=== PATIENT | female | born 1940 | race Caucasian/White ===

== ENCOUNTER 2019-12-14 00:06 | Inpatient (IN) ==
[2019-12-14 01:18] LABS: Bacteria,Urine Moderate per hpf (None-Few); Bilirubin,Urine Negative (Negative); Blood,Urine Trace (Negative); Clarity,Urine Turbid (Clear); Color,Urine Yellow (Yellow); Glucose,Urine (UA) Normal (Normal); Ketones,Urine Negative (Negative); Leukocyte Esterase,Urine Moderate (Negative); Mucus,Urine Few per lpf (None-Few); Nitrite,Urine Negative (Negative); Protein,Urine >=300 mg/dL (Neg-Trace); Specific Gravity,Urine 1.022 (1.010-1.025); Squamous Epithelial Cell,Urine Few per hpf (None-Few); WBC,Urine 50-100 per hpf (0-3)
[2019-12-14] MEDS ORDERED: 0.9 % Sodium Chloride 1,000 ML IVC ONE (02:00)
[2019-12-14 03:26] LABS: Albumin 3.1 g/dL (3.5-5.7); Albumin/Globulin Ratio 1.2 (1.1-2.2); Bilirubin,Total 0.8 mg/dL (0.3-1.0); Calcium 8.1 mg/dL (8.6-10.3); Globulin 2.6 g/dL (2.4-3.5); Potassium 4.2 mEq/L (3.5-5.1); Total Protein 5.7 g/dL (6.4-8.9)
[2019-12-14 03:36] LABS: Basophils % 0.2 %; Hemoglobin 10.4 g/dL (11.5-15.4); Immature Granulocytes % 0.7 % (0-4); Lymphocytes # 0.4 K/mcL (0.6-4.6); Lymphocytes % 7.5 %; Mean Corpuscular HGB Conc 31.5 g/dL (31.6-35.5); Mean Corpuscular Hemoglobin 27.9 pg (28.0-33.3); Mean Corpuscular Volume 88.5 fL (83.0-100.0); Mean Platelet Volume 13.9 fL (9.4-12.4); Monocytes # 0.3 K/mcL (0.0-1.3); Monocytes % 4.5 %; Neutrophils # 4.8 K/mcL (1.6-8.9); Platelet Count 59 K/mcL (140-400); Red Blood Count 3.73 M/mcL (3.82-4.97); Red Cell Distribution Width 12.5 % (11.5-14.5); Segmented Neutrophils % 87.1 %; White Blood Count 5.5 K/mcL (4.3-11.1)
[2019-12-14 03:37] LABS: Large Platelets Present (Not Present); Platelet Estimate Decreased (Normal)
[2019-12-14] MEDS ORDERED: cefTRIAXone 1,000 MG in Water for inj. (sterile) 10 ML IVP ONE (04:22)
[2019-12-14] MEDS ORDERED: *HR* Dextrose 50 % in Water (Vial) 50 ML VIAL IVP PRN (05:14)
[2019-12-14] MEDS ORDERED: D5% in Water 1,000 ML IVC PRN (05:14)
[2019-12-14] MEDS ORDERED: Dextrose Gel 15 GM/37.5 ML TUBE PO PRN ×2 (05:14)
[2019-12-14] MEDS ORDERED: Ondansetron 4 MG/2 ML VIAL IVP PRN (05:27)
[2019-12-14] MEDS ORDERED: Naloxone 0.4 MG/ML INJ IVP PRN (05:27)
[2019-12-14 06:01] LABS: Uric Acid 4.9 mg/dL (2.3-7.6)
[2019-12-14 06:08] LABS: INR 1.1; Prothrombin Time 12.6 Seconds (9.4-12.1)
[2019-12-14 06:10] LABS: Activated Partial Thrombo Time 28.1 Seconds (26.0-36.0)
[2019-12-14] MEDS: Insulin DETEMIR 100 UNIT/ML X5UNITS SQ SCH ×2 (06:27→20:45)
[2019-12-14] MEDS: 0.9 % Sodium Chloride 1,000 ML IVC SCH ×2 (06:35→20:44)
[2019-12-14 06:50] LABS: Calcium 8.2 mg/dL (8.6-10.3)
[2019-12-14] MEDS: Insulin LISPRO 300 UNITS/3 ML VIAL SQ SCH ×3 (08:23→17:51)
[2019-12-14 08:55] LABS: Calcium 8.2 mg/dL (8.6-10.3)
[2019-12-14] MEDS ORDERED: PARoxetine 10 MG TABLET PO SCH (09:15)
[2019-12-14] MEDS ORDERED: amLODIPine 5 MG TABLET PO SCH (09:15)
[2019-12-14 10:49] LABS: Potassium 3.8 mEq/L (3.5-5.1)
[2019-12-14] MEDS: Aspirin Enteric Coated 81 MG Tablet PO SCH (10:55)
[2019-12-14] MEDS: carvediloL 25 MG TABLET PO SCH ×2 (10:58→17:51)
[2019-12-14 16:54] LABS: Calcium 7.9 mg/dL (8.6-10.3); Potassium 3.9 mEq/L (3.5-5.1)
[2019-12-14] MEDS: Acetaminophen 325 MG TABLET PO PRN (19:11)
[2019-12-14] MEDS: PARoxetine 10 MG TABLET PO SCH (20:45)
[2019-12-14] MEDS: amLODIPine 5 MG TABLET PO SCH (20:45)
[2019-12-15 00:53] LABS: Calcium 7.8 mg/dL (8.6-10.3); Potassium 3.9 mEq/L (3.5-5.1)
[2019-12-15] MEDS: hydrALAZINE 10 MG TABLET PO PRN ×2 (04:04→10:58)
[2019-12-15] MEDS: Acetaminophen 325 MG TABLET PO PRN ×3 (04:04→16:43)
[2019-12-15] MEDS ORDERED: cefTRIAXone 1,000 MG in 0.9 % Sodium Chloride Mini Bag 100 ML IVPB SCH (05:00)
[2019-12-15 07:34] LABS: Hemoglobin 9.5 g/dL (11.5-15.4)
[2019-12-15 07:36] LABS: Hematocrit 29.4 % (35.3-44.9); Immature Platelets 22.3 % (1.1-6.1); Lymphocytes # 0.2 K/mcL (0.6-4.6); Mean Corpuscular HGB Conc 32.3 g/dL (31.6-35.5); Mean Corpuscular Hemoglobin 28.3 pg (28.0-33.3); Mean Corpuscular Volume 87.5 fL (83.0-100.0); Monocytes # 0.2 K/mcL (0.0-1.3); Red Blood Count 3.36 M/mcL (3.82-4.97); Red Cell Distribution Width 12.6 % (11.5-14.5)
[2019-12-15 07:40] LABS: Platelet Count 31 K/mcL (140-400)
[2019-12-15 07:48] LABS: % Iron Saturation 6 % (15-50); Alanine Aminotransferase 74 Units/L (7-52); Albumin 2.7 g/dL (3.5-5.7); Albumin/Globulin Ratio 1.3 (1.1-2.2); Alkaline Phosphatase 85 Units/L (34-104); Aspartate Amino Transferase 74 Units/L (13-39); BUN/Creatinine Ratio 22 (6-26); Bilirubin,Total 0.6 mg/dL (0.3-1.0); Blood Urea Nitrogen 29 mg/dL (8-23); Calcium 7.9 mg/dL (8.6-10.3); Carbon Dioxide 22 mEq/L (23-29); Chloride 100 mEq/L (98-107); Globulin 2.1 g/dL (2.4-3.5); Glucose 182 mg/dL (70-105); Iron 13 mcg/dL (50-170); Osmolality,Calculated 280 (280-300); Potassium 3.7 mEq/L (3.5-5.1); Sodium 130 mEq/L (136-145); Total Protein 4.8 g/dL (6.4-8.9); Transferrin 158 mg/dL (203-362); eGFR For African Americans 46 (> 60); eGFR For Non-African Americans 38 (> 60)
[2019-12-15 07:55] LABS: Thyroid Stimulating Hormone 0.252 mcIU/mL (0.340-5.600)
[2019-12-15 08:01] LABS: Ferritin > 1500 ng/mL (10-120)
[2019-12-15 08:04] LABS: Folate 17.8 ng/mL (3.0-16.0)
[2019-12-15 08:05] LABS: Vitamin B12 1153 pg/mL (250-1100)
[2019-12-15] MEDS: carvediloL 25 MG TABLET PO SCH ×2 (08:28→16:43)
[2019-12-15] MEDS: Aspirin Enteric Coated 81 MG Tablet PO SCH (08:28)
[2019-12-15] MEDS: Insulin LISPRO 300 UNITS/3 ML VIAL SQ SCH ×3 (08:32→16:44)
[2019-12-15 08:47] LABS: Neutrophils # 2.6 K/mcL (1.6-8.9); Platelet Estimate Marked Decrease (Normal)
[2019-12-15 08:48] LABS: Hepatitis B Surface Antigen Nonreactive (Nonreactive)
[2019-12-15 09:08] LABS: Protein/Creatinine Ratio,Urine 2.48 mg/mg (0.00-0.20)
[2019-12-15 09:16] LABS: Hepatitis B Core IgM Nonreactive (Nonreactive)
[2019-12-15 09:17] LABS: Hepatitis A Antibody IgM Nonreactive (Nonreactive); Hepatitis C Virus Antibody Nonreactive (Nonreactive)
[2019-12-15] MEDS ORDERED: NON-FORMULARY MEDICATION 1 EACH EACH (Losartan Potassium [Cozaar] 100 MG) PO SCH (10:00)
[2019-12-15 11:01] LABS: Mean Corpuscular HGB Conc 32.9 g/dL (31.6-35.5)
[2019-12-15 11:02] LABS: Hematocrit 29.2 % (35.3-44.9); Hemoglobin 9.6 g/dL (11.5-15.4); Immature Platelets 23.3 % (1.1-6.1); Mean Corpuscular Hemoglobin 28.5 pg (28.0-33.3); Mean Corpuscular Volume 86.6 fL (83.0-100.0); Monocytes # 0.3 K/mcL (0.0-1.3); Red Blood Count 3.37 M/mcL (3.82-4.97); Red Cell Distribution Width 12.8 % (11.5-14.5); White Blood Count 3.4 K/mcL (4.3-11.1)
[2019-12-15 11:04] LABS: Triiodothyronine (T3) Free 2.17 pg/mL (2.50-3.90)
[2019-12-15 11:16] LABS: Platelet Count 28 K/mcL (140-400)
[2019-12-15] MEDS: 0.9 % Sodium Chloride 1,000 ML IVC SCH ×2 (11:27→22:37)
[2019-12-15] MEDS: Ipratropium/Albuterol Neb 3 ML IH PRN (11:46)
[2019-12-15] MEDS ORDERED: amLODIPine 5 MG TABLET PO ONE (11:48)
[2019-12-15 12:32] LABS: Eosinophils # 0.1 K/mcL (0.0-0.6); Lymphocytes # 0.3 K/mcL (0.6-4.6); Neutrophils # 2.7 K/mcL (1.6-8.9); Platelet Estimate Marked Decrease (Normal)
[2019-12-15] MEDS: Piperacillin/Tazobactam 3.375 GM in 0.9 % Sodium Chloride Mini Bag 100 ML IVPB SCH ×2 (13:58→22:36)
[2019-12-15] MEDS ORDERED: 0.9 % Sodium Chloride 500 ML IVC ONE (16:04)
[2019-12-15 16:24] LABS: Bilirubin,Urine Negative (Negative); Blood,Urine Negative (Negative); Clarity,Urine Clear (Clear); Color,Urine Yellow (Yellow); Glucose,Urine (UA) Normal (Normal); Ketones,Urine Negative (Negative); Leukocyte Esterase,Urine Negative (Negative); Nitrite,Urine Negative (Negative); Protein,Urine 200 mg/dL (Neg-Trace); RBC,Urine 0-3 per hpf (0-3); Specific Gravity,Urine 1.021 (1.010-1.025); Squamous Epithelial Cell,Urine Few per hpf (None-Few); WBC,Urine 0-3 per hpf (0-3)
[2019-12-15 19:16] LABS: Adenovirus Not Detected (Not Detect); Bordetella Pertussis Not Detected (Not Detect); Chlamydophila pneumoniae Not Detected (Not Detect); Coronavirus 229E Not Detected (Not Detect); Coronavirus HKU1 Not Detected (Not Detect); Coronavirus NL63 Not Detected (Not Detect); Coronavirus OC43 Not Detected (Not Detect); Human Metapneumovirus Not Detected (Not Detect); Human Rhinovirus/Enterovirus Not Detected (Not Detect); Influenza A Subtype 2009 H1 Not Detected (Not Detect); Influenza B Not Detected (Not Detect); Mycoplasma pneumoniae Not Detected (Not Detect); Parainfluenza Virus 1 Not Detected (Not Detect); Parainfluenza Virus 2 Not Detected (Not Detect); Parainfluenza Virus 3 Not Detected (Not Detect); Parainfluenza Virus 4 Not Detected (Not Detect); Respiratory Syncytial Virus Not Detected (Not Detect)
[2019-12-15 19:23] LABS: SARS-CoV-2 Not Detected (Not Detect)
[2019-12-15] MEDS: PARoxetine 10 MG TABLET PO SCH (22:36)
[2019-12-15] MEDS: amLODIPine 5 MG TABLET PO SCH (22:36)
[2019-12-15] MEDS: Insulin DETEMIR 100 UNIT/ML X5UNITS SQ SCH (22:36)
[2019-12-16] MEDS: hydrALAZINE 10 MG TABLET PO PRN ×2 (04:02→14:56)
[2019-12-16] MEDS: Acetaminophen 325 MG TABLET PO PRN ×2 (04:02→14:56)
[2019-12-16] MEDS: Piperacillin/Tazobactam 3.375 GM in 0.9 % Sodium Chloride Mini Bag 100 ML IVPB SCH ×3 (06:45→21:45)
[2019-12-16 07:39] LABS: Hemoglobin 8.6 g/dL (11.5-15.4)
[2019-12-16 07:41] LABS: Hematocrit 26.4 % (35.3-44.9); Lymphocytes # 0.5 K/mcL (0.6-4.6); Mean Corpuscular HGB Conc 32.6 g/dL (31.6-35.5); Mean Corpuscular Hemoglobin 28.8 pg (28.0-33.3); Mean Corpuscular Volume 88.3 fL (83.0-100.0); Red Blood Count 2.99 M/mcL (3.82-4.97); White Blood Count 3.8 K/mcL (4.3-11.1)
[2019-12-16 07:48] LABS: Calcium 7.2 mg/dL (8.6-10.3); Potassium 3.5 mEq/L (3.5-5.1)
[2019-12-16 08:03] LABS: Platelet Count 18 K/mcL (140-400)
[2019-12-16] MEDS: 0.9 % Sodium Chloride 1,000 ML IVC SCH (08:05)
[2019-12-16] MEDS: carvediloL 25 MG TABLET PO SCH ×2 (08:05→17:01)
[2019-12-16] MEDS: Aspirin Enteric Coated 81 MG Tablet PO SCH (08:05)
[2019-12-16] MEDS: Insulin LISPRO 300 UNITS/3 ML VIAL SQ SCH ×5 (08:09→21:45)
[2019-12-16] MEDS ORDERED: Vancomycin 1,500 MG/265 ML IV.SOLN IVPB ONE (08:20)
[2019-12-16 08:46] LABS: Magnesium 1.6 mg/dL (1.6-2.6)
[2019-12-16 08:52] LABS: Monocytes # 0.2 K/mcL (0.0-1.3); Neutrophils # 3.1 K/mcL (1.6-8.9); Platelet Estimate Marked Decrease (Normal)
[2019-12-16 09:43] LABS: Phosphorous 2.8 mg/dL (2.7-4.5)
[2019-12-16] MEDS: Ipratropium/Albuterol Neb 3 ML IH PRN (10:52)
[2019-12-16] MEDS ORDERED: 0.9 % Sodium Chloride 250 ML IVC SCH (11:45)
[2019-12-16] MEDS: Pantoprazole 40 MG VIAL IVP SCH ×2 (12:06→15:44)
[2019-12-16 12:22] LABS: Hematocrit 28.4 % (35.3-44.9); Hemoglobin 9.1 g/dL (11.5-15.4)
[2019-12-16] MEDS ORDERED: Furosemide 20 MG/2 ML VIAL IVP ONE (15:00)
[2019-12-16] MEDS ORDERED: MethylPREDNISolone 40 MG/ML VIAL IVP ONE (15:01)
[2019-12-16] MEDS ORDERED: 0.9 % Sodium Chloride 250 ML ONE (17:35)
[2019-12-16 19:55] LABS: Hematocrit 26.3 % (35.3-44.9); Hemoglobin 8.3 g/dL (11.5-15.4)
[2019-12-16] MEDS: amLODIPine 5 MG TABLET PO SCH (21:44)
[2019-12-16] MEDS: PARoxetine 10 MG TABLET PO SCH (21:44)
[2019-12-17 00:22] LABS: Hematocrit 26.1 % (35.3-44.9); Hemoglobin 8.2 g/dL (11.5-15.4)
[2019-12-17] MEDS: Insulin LISPRO 300 UNITS/3 ML VIAL SQ SCH ×5 (05:34→20:47)
[2019-12-17] MEDS ORDERED: cefOXitin 1,000 MG, 0.9 % Sodium Chloride 1,000 ML IR ONE (06:00)
[2019-12-17] MEDS: Pantoprazole 40 MG VIAL IVP SCH ×2 (06:52→17:07)
[2019-12-17] MEDS: Piperacillin/Tazobactam 3.375 GM in 0.9 % Sodium Chloride Mini Bag 100 ML IVPB SCH ×3 (06:53→22:12)
[2019-12-17 07:45] LABS: Hematocrit 26.9 % (35.3-44.9); Hemoglobin 8.5 g/dL (11.5-15.4); Immature Platelets 31.8 % (1.1-6.1); Mean Corpuscular HGB Conc 31.6 g/dL (31.6-35.5); Mean Corpuscular Hemoglobin 27.8 pg (28.0-33.3); Mean Corpuscular Volume 87.9 fL (83.0-100.0); Mean Platelet Volume 14.2 fL (9.4-12.4); Monocytes # 0.3 K/mcL (0.0-1.3); Red Blood Count 3.06 M/mcL (3.82-4.97); Red Cell Distribution Width 13.4 % (11.5-14.5); White Blood Count 4.8 K/mcL (4.3-11.1)
[2019-12-17 07:48] LABS: Fibrinogen 166 mg/dL (169-393)
[2019-12-17 07:52] LABS: Platelet Count 21 K/mcL (140-400)
[2019-12-17 07:56] LABS: D-Dimer 34696 ng/mLFEU (0-500)
[2019-12-17 08:04] LABS: Albumin 2.4 g/dL (3.5-5.7); Albumin/Globulin Ratio 1.1 (1.1-2.2); Bilirubin,Direct 1.5 mg/dL (0.0-0.2); Bilirubin,Indirect 0.7 mg/dL (0.0-1.0); Bilirubin,Total 2.2 mg/dL (0.3-1.0); Calcium 7.7 mg/dL (8.6-10.3); Globulin 2.1 g/dL (2.4-3.5); Magnesium 1.9 mg/dL (1.6-2.6); Phosphorous 3.8 mg/dL (2.7-4.5); Potassium 3.3 mEq/L (3.5-5.1); Total Protein 4.5 g/dL (6.4-8.9)
[2019-12-17 08:20] LABS: Vancomycin,Trough 8 mcg/mL (5-10)
[2019-12-17 08:24] LABS: Lymphocytes # 0.2 K/mcL (0.6-4.6); Neutrophils # 4.3 K/mcL (1.6-8.9); Platelet Estimate Marked Decrease (Normal)
[2019-12-17] MEDS ORDERED: 0.9 % Sodium Chloride 250 ML IVC SCH ×2 (08:30→09:45)
[2019-12-17 08:34] LABS: Acetaminophen < 10 mcg/mL (10-20); Lactate Dehydrogenase 791 Units/L (140-271)
[2019-12-17] MEDS: carvediloL 25 MG TABLET PO SCH ×2 (08:55→16:03)
[2019-12-17] MEDS ORDERED: Vancomycin 1,250 MG/262.5 ML IV.SOLN IVPB SCH (09:00)
[2019-12-17 09:20] LABS: INR 1.1
[2019-12-17 09:21] LABS: Immature Reticulocyte % 14.6 % (11.0-38.0); Retculocyte # 0.03 M/mcL (0.05-0.10)
[2019-12-17] MEDS: hydrALAZINE 10 MG TABLET PO PRN ×2 (12:05→20:39)
[2019-12-17] MEDS: ALPRAZolam 0.5 MG TABLET PO PRN ×2 (12:05→20:40)
[2019-12-17] MEDS ORDERED: Aminoglycoside Consult 1 EACH MC ONE (14:10)
[2019-12-17 17:56] LABS: ANA IgG by ELISA NONE DETECTED (None Detected)
[2019-12-17] MEDS: amLODIPine 5 MG TABLET PO SCH (20:40)
[2019-12-17] MEDS: PARoxetine 10 MG TABLET PO SCH (20:40)
[2019-12-17] MEDS: Insulin DETEMIR 100 UNIT/ML X5UNITS SQ SCH (22:13)
[2019-12-17] MEDS: Ipratropium/Albuterol Neb 3 ML IH PRN (23:37)
[2019-12-18] MEDS: Pantoprazole 40 MG VIAL IVP SCH ×2 (06:16→16:45)
[2019-12-18] MEDS: Piperacillin/Tazobactam 3.375 GM in 0.9 % Sodium Chloride Mini Bag 100 ML IVPB SCH ×3 (06:58→21:37)
[2019-12-18] MEDS: carvediloL 25 MG TABLET PO SCH ×2 (07:43→16:43)
[2019-12-18] MEDS: Insulin LISPRO 300 UNITS/3 ML VIAL SQ SCH ×4 (07:44→19:55)
[2019-12-18 08:33] LABS: Hemoglobin 7.9 g/dL (11.5-15.4)
[2019-12-18 08:35] LABS: Hematocrit 24.1 % (35.3-44.9); Immature Platelets 23.7 % (1.1-6.1); Mean Corpuscular HGB Conc 32.8 g/dL (31.6-35.5); Mean Corpuscular Hemoglobin 28.6 pg (28.0-33.3); Mean Corpuscular Volume 87.3 fL (83.0-100.0); Red Blood Count 2.76 M/mcL (3.82-4.97); Red Cell Distribution Width 13.5 % (11.5-14.5)
[2019-12-18 08:48] LABS: Platelet Count 41 K/mcL (140-400)
[2019-12-18 08:55] LABS: Albumin 2.3 g/dL (3.5-5.7); Albumin/Globulin Ratio 1.1 (1.1-2.2); Bilirubin,Indirect 0.6 mg/dL (0.0-1.0); Bilirubin,Total 1.6 mg/dL (0.3-1.0); Calcium 7.7 mg/dL (8.6-10.3); Globulin 2.1 g/dL (2.4-3.5); Magnesium 2.1 mg/dL (1.6-2.6); Phosphorous 2.5 mg/dL (2.7-4.5); Potassium 3.2 mEq/L (3.5-5.1); Total Protein 4.4 g/dL (6.4-8.9)
[2019-12-18 09:02] LABS: Fibrinogen 167 mg/dL (169-393)
[2019-12-18] MEDS ORDERED: Potassium Phosphate 44 MEQ in 0.9 % Sodium Chloride 250 ML IVPB ONE (09:14)
[2019-12-18 09:15] LABS: D-Dimer 16378 ng/mLFEU (0-500)
[2019-12-18 10:26] LABS: Lymphocytes # 0.8 K/mcL (0.6-4.6); Monocytes # 0.3 K/mcL (0.0-1.3); Neutrophils # 7.9 K/mcL (1.6-8.9)
[2019-12-18 10:27] LABS: Platelet Estimate Marked Decrease (Normal)
[2019-12-18 10:28] LABS: Large Platelets Present (Not Present); Reactive Lymphocytes Present (Not Present)
[2019-12-18 11:19] LABS: ABG Base Excess 0 mEq/L (-2 to 3); ABG HCO3 25 mEq/L (21-27); ABG Oxygen Saturation 93 % (95-98); ABG PCO2 44 mmHg (35-45); ABG PH 7.36 pH Units (7.32-7.45); ABG PO2 69 mmHg (85-104); ABG TCO2 26 mEq/L (20-26)
[2019-12-18 16:27] LABS: Hemoglobin 7.6 g/dL (11.5-15.4)
[2019-12-18 16:29] LABS: Hematocrit 23.9 % (35.3-44.9)
[2019-12-18] MEDS: PARoxetine 10 MG TABLET PO SCH (19:55)
[2019-12-18] MEDS: amLODIPine 5 MG TABLET PO SCH (19:55)
[2019-12-18] MEDS: Insulin DETEMIR 100 UNIT/ML X5UNITS SQ SCH (19:57)
[2019-12-19] MEDS: Ipratropium/Albuterol Neb 3 ML IH PRN (01:21)
[2019-12-19] MEDS: Pantoprazole 40 MG VIAL IVP SCH ×2 (05:45→17:23)
[2019-12-19] MEDS: Piperacillin/Tazobactam 3.375 GM in 0.9 % Sodium Chloride Mini Bag 100 ML IVPB SCH ×3 (05:45→21:09)
[2019-12-19 08:26] LABS: Calcium 7.5 mg/dL (8.6-10.3); Magnesium 2.1 mg/dL (1.6-2.6); Phosphorous 2.5 mg/dL (2.7-4.5); Potassium 3.5 mEq/L (3.5-5.1)
[2019-12-19 08:28] LABS: Hematocrit 24.8 % (35.3-44.9)
[2019-12-19] MEDS: Insulin LISPRO 300 UNITS/3 ML VIAL SQ SCH ×4 (08:28→21:13)
[2019-12-19 08:30] LABS: Hemoglobin 7.7 g/dL (11.5-15.4); Immature Platelets 30.6 % (1.1-6.1); Mean Corpuscular Hemoglobin 27.3 pg (28.0-33.3); Mean Corpuscular Volume 87.9 fL (83.0-100.0); Nucleated Red Blood Cells 0.1 /100 WBC (0); Red Blood Count 2.82 M/mcL (3.82-4.97); Red Cell Distribution Width 14.1 % (11.5-14.5); White Blood Count 15.7 K/mcL (4.3-11.1)
[2019-12-19 08:37] LABS: Platelet Count 42 K/mcL (140-400)
[2019-12-19] MEDS: Aspirin Enteric Coated 81 MG Tablet PO SCH (08:38)
[2019-12-19] MEDS: carvediloL 25 MG TABLET PO SCH ×2 (08:38→17:23)
[2019-12-19 09:10] LABS: Lymphocytes # 7.5 K/mcL (0.6-4.6); Monocytes # 0.3 K/mcL (0.0-1.3); Neutrophils # 7.9 K/mcL (1.6-8.9)
[2019-12-19 09:11] LABS: Platelet Estimate Decreased (Normal); Reactive Lymphocytes Present (Not Present)
[2019-12-19 18:30] LABS: Hematocrit 24.5 % (35.3-44.9); Hemoglobin 7.8 g/dL (11.5-15.4)
[2019-12-19] MEDS: PARoxetine 10 MG TABLET PO SCH (21:09)
[2019-12-19] MEDS: amLODIPine 5 MG TABLET PO SCH (21:09)
[2019-12-19] MEDS: Insulin DETEMIR 100 UNIT/ML X5UNITS SQ SCH (21:13)
[2019-12-20 03:00] LABS: Hemoglobin 8.2 g/dL (11.5-15.4)
[2019-12-20 03:02] LABS: Hematocrit 25.6 % (35.3-44.9); Mean Corpuscular Volume 87.4 fL (83.0-100.0); Nucleated Red Blood Cells 0.2 /100 WBC (0); Red Blood Count 2.93 M/mcL (3.82-4.97); Red Cell Distribution Width 14.4 % (11.5-14.5); White Blood Count 23.8 K/mcL (4.3-11.1)
[2019-12-20 03:05] LABS: Platelet Count 47 K/mcL (140-400)
[2019-12-20 03:24] LABS: Calcium 7.7 mg/dL (8.6-10.3); Magnesium 2.1 mg/dL (1.6-2.6); Phosphorous 3.3 mg/dL (2.7-4.5); Potassium 3.4 mEq/L (3.5-5.1)
[2019-12-20 03:31] LABS: Neutrophils # 13.8 K/mcL (1.6-8.9); Platelet Estimate Decreased (Normal); Reactive Lymphocytes Present (Not Present); Smudge Cells Present (Not Present)
[2019-12-20] MEDS: Pantoprazole 40 MG VIAL IVP SCH ×2 (06:02→18:26)
[2019-12-20] MEDS: Piperacillin/Tazobactam 3.375 GM in 0.9 % Sodium Chloride Mini Bag 100 ML IVPB SCH ×2 (06:02→16:02)
[2019-12-20] MEDS: Insulin LISPRO 300 UNITS/3 ML VIAL SQ SCH ×4 (08:01→21:28)
[2019-12-20] MEDS ORDERED: Lidocaine -MPF 2% 2 ML VIAL ONE (08:50)
[2019-12-20 10:12] LABS: Albumin 2.3 g/dL (3.5-5.7); Bilirubin,Direct 0.4 mg/dL (0.0-0.2); Bilirubin,Indirect 0.5 mg/dL (0.0-1.0); Bilirubin,Total 0.9 mg/dL (0.3-1.0); Globulin 2.2 g/dL (2.4-3.5); Total Protein 4.5 g/dL (6.4-8.9)
[2019-12-20] MEDS: carvediloL 25 MG TABLET PO SCH ×2 (11:48→18:25)
[2019-12-20] MEDS: Aspirin Enteric Coated 81 MG Tablet PO SCH (11:48)
[2019-12-20] MEDS ORDERED: cefTRIAXone 1,000 MG in 0.9 % Sodium Chloride Mini Bag 100 ML IVPB ONE (16:21)
[2019-12-20] MEDS ORDERED: Doxycycline 100 MG in 0.9 % Sodium Chloride Mini Bag 100 ML IVPB SCH (18:00)
[2019-12-20] MEDS: Nystatin SUSP 5 ML UD.LIQ PO SCH ×2 (18:25→21:30)
[2019-12-20] MEDS: rifAMPin 150 MG CAPSULE PO SCH (18:44)
[2019-12-20] MEDS: Insulin DETEMIR 100 UNIT/ML X5UNITS SQ SCH (21:30)
[2019-12-20] MEDS: amLODIPine 5 MG TABLET PO SCH (21:31)
[2019-12-20] MEDS ORDERED: Potassium Chloride Elixir 20 MEQ/15 ML UDC PO ONE ×2 (21:40→22:00)
[2019-12-20] MEDS: PARoxetine 10 MG TABLET PO SCH (21:51)
[2019-12-21] MEDS: Pantoprazole 40 MG VIAL IVP SCH ×2 (05:45→17:34)
[2019-12-21] MEDS ORDERED: Famotidine 20 MG/2 ML VIAL IVP PRN (07:15)
[2019-12-21] MEDS ORDERED: methylPREDNISolone 125 MG/2 ML VIAL IVP PRN (07:15)
[2019-12-21] MEDS ORDERED: EPINEPHrine 1 MG/ML VIAL IM PRN (07:15)
[2019-12-21] MEDS: carvediloL 25 MG TABLET PO SCH ×2 (07:15→17:34)
[2019-12-21] MEDS ORDERED: 0.9 % Sodium Chloride 1,000 ML IV PRN (07:15)
[2019-12-21] MEDS ORDERED: DOXYCYCLINE IVPB ONE (08:00)
[2019-12-21] MEDS ORDERED: SODIUM CHLORIDE 0.9% IVPB ONE (08:00)
[2019-12-21] MEDS ORDERED: Doxycycline 100 MG in 0.9 % Sodium Chloride Mini Bag 100 ML IVPB ONE (08:00)
[2019-12-21 08:21] LABS: Hematocrit 25.9 % (35.3-44.9); Hemoglobin 8.3 g/dL (11.5-15.4); Immature Platelets 23.4 % (1.1-6.1); Mean Corpuscular Hemoglobin 28.4 pg (28.0-33.3); Mean Corpuscular Volume 88.7 fL (83.0-100.0); Nucleated Red Blood Cells 0.2 /100 WBC (0); Red Blood Count 2.92 M/mcL (3.82-4.97); Red Cell Distribution Width 14.4 % (11.5-14.5); White Blood Count 26.6 K/mcL (4.3-11.1)
[2019-12-21 08:28] LABS: Platelet Count 54 K/mcL (140-400)
[2019-12-21 08:37] LABS: Calcium 7.8 mg/dL (8.6-10.3); Magnesium 1.9 mg/dL (1.6-2.6); Phosphorous 2.5 mg/dL (2.7-4.5); Potassium 3.8 mEq/L (3.5-5.1)
[2019-12-21] MEDS: Nystatin SUSP 5 ML UD.LIQ PO SCH ×4 (08:59→20:59)
[2019-12-21] MEDS: rifAMPin 150 MG CAPSULE PO SCH ×2 (08:59→17:36)
[2019-12-21] MEDS: Aspirin Enteric Coated 81 MG Tablet PO SCH (09:01)
[2019-12-21] MEDS: Insulin LISPRO 300 UNITS/3 ML VIAL SQ SCH ×4 (09:01→20:59)
[2019-12-21 09:20] LABS: Eosinophils # 0.3 K/mcL (0.0-0.6); Lymphocytes # 15.4 K/mcL (0.6-4.6); Monocytes # 0.5 K/mcL (0.0-1.3); Neutrophils # 10.1 K/mcL (1.6-8.9)
[2019-12-21 09:21] LABS: Platelet Estimate Marked Decrease (Normal); Reactive Lymphocytes Present (Not Present)
[2019-12-21] MEDS ORDERED: Albuterol 2.5 MG/3 ML NEBULIZER IH PRN (11:01)
[2019-12-21] MEDS: hydrALAZINE 10 MG TABLET PO PRN ×2 (12:04→17:34)
[2019-12-21] MEDS: cefTRIAXone 1,000 MG in 0.9 % Sodium Chloride Mini Bag 100 ML IVPB SCH (14:24)
[2019-12-21] MEDS: amLODIPine 5 MG TABLET PO SCH (20:59)
[2019-12-21] MEDS: PARoxetine 10 MG TABLET PO SCH (20:59)
[2019-12-21] MEDS: Artificial Tears SOLN 15 ML BOTTLE BOTH EYES SCH (20:59)
[2019-12-21] MEDS: Lactobacillus 1 EACH CAP.SPRINK PO SCH (20:59)
[2019-12-21] MEDS: Insulin DETEMIR 100 UNIT/ML X5UNITS SQ SCH (21:00)
[2019-12-21] MEDS: Doxycycline 100 MG in 0.9 % Sodium Chloride Mini Bag 100 ML IVPB SCH (22:08)
[2019-12-22] MEDS: Pantoprazole 40 MG VIAL IVP SCH ×2 (06:31→17:30)
[2019-12-22] MEDS: Doxycycline 100 MG in 0.9 % Sodium Chloride Mini Bag 100 ML IVPB SCH (06:31)
[2019-12-22] MEDS: Insulin LISPRO 300 UNITS/3 ML VIAL SQ SCH ×4 (07:53→21:59)
[2019-12-22] MEDS: rifAMPin 150 MG CAPSULE PO SCH (08:37)
[2019-12-22] MEDS: carvediloL 25 MG TABLET PO SCH ×2 (08:37→17:30)
[2019-12-22] MEDS: Nystatin SUSP 5 ML UD.LIQ PO SCH ×4 (08:37→21:56)
[2019-12-22] MEDS: Lactobacillus 1 EACH CAP.SPRINK PO SCH ×2 (08:37→21:56)
[2019-12-22] MEDS: cefTRIAXone 1,000 MG in 0.9 % Sodium Chloride Mini Bag 100 ML IVPB SCH (08:38)
[2019-12-22] MEDS: Aspirin Enteric Coated 81 MG Tablet PO SCH (08:38)
[2019-12-22] MEDS: Artificial Tears SOLN 15 ML BOTTLE BOTH EYES SCH ×4 (08:46→21:58)
[2019-12-22 09:52] LABS: Hematocrit 24.9 % (35.3-44.9); Hemoglobin 7.9 g/dL (11.5-15.4); Mean Corpuscular HGB Conc 31.7 g/dL (31.6-35.5); Mean Corpuscular Hemoglobin 27.7 pg (28.0-33.3); Mean Corpuscular Volume 87.4 fL (83.0-100.0); Red Blood Count 2.85 M/mcL (3.82-4.97)
[2019-12-22 09:54] LABS: Immature Platelets 21.6 % (1.1-6.1); Mean Platelet Volume 13.6 fL (9.4-12.4); Nucleated Red Blood Cells 0.4 /100 WBC (0); Red Cell Distribution Width 14.4 % (11.5-14.5); White Blood Count 15.6 K/mcL (4.3-11.1)
[2019-12-22 10:04] LABS: Platelet Count 54 K/mcL (140-400)
[2019-12-22 10:11] LABS: Albumin 2.5 g/dL (3.5-5.7); Albumin/Globulin Ratio 1.1 (1.1-2.2); Bilirubin,Total 1.4 mg/dL (0.3-1.0); Calcium 7.5 mg/dL (8.6-10.3); Globulin 2.2 g/dL (2.4-3.5); Potassium 3.6 mEq/L (3.5-5.1); Total Protein 4.7 g/dL (6.4-8.9)
[2019-12-22 10:44] LABS: Eosinophils # 0.3 K/mcL (0.0-0.6); Lymphocytes # 7.8 K/mcL (0.6-4.6); Monocytes # 1.6 K/mcL (0.0-1.3); Neutrophils # 5.9 K/mcL (1.6-8.9); Reactive Lymphocytes Present (Not Present)
[2019-12-22 10:45] LABS: Platelet Estimate Decreased (Normal)
[2019-12-22] MEDS: hydrALAZINE 10 MG TABLET PO PRN ×2 (11:39→17:31)
[2019-12-22] MEDS: ALPRAZolam 0.5 MG TABLET PO PRN (17:42)
[2019-12-22] MEDS: Doxycycline 100 MG CAPSULE PO SCH (21:56)
[2019-12-22] MEDS: PARoxetine 10 MG TABLET PO SCH (21:56)
[2019-12-22] MEDS: amLODIPine 5 MG TABLET PO SCH (21:56)
[2019-12-22] MEDS: Insulin DETEMIR 100 UNIT/ML X5UNITS SQ SCH (21:58)
[2019-12-23] MEDS: hydrALAZINE 10 MG TABLET PO PRN (00:08)
[2019-12-23] MEDS: Pantoprazole 40 MG VIAL IVP SCH (06:15)
[2019-12-23 07:24] LABS: Basophils % 0.3 %; Hemoglobin 7.9 g/dL (11.5-15.4)
[2019-12-23 07:26] LABS: Eosinophils # 0.1 K/mcL (0.0-0.6); Hematocrit 24.8 % (35.3-44.9); Immature Granulocytes % 2.1 % (0-4); Immature Platelets 17.3 % (1.1-6.1); Lymphocytes # 7.1 K/mcL (0.6-4.6); Lymphocytes % 66.4 %; Mean Corpuscular HGB Conc 31.9 g/dL (31.6-35.5); Mean Corpuscular Hemoglobin 27.9 pg (28.0-33.3); Mean Corpuscular Volume 87.6 fL (83.0-100.0); Mean Platelet Volume 13.9 fL (9.4-12.4); Monocytes # 0.8 K/mcL (0.0-1.3); Monocytes % 7.7 %; Neutrophils # 2.4 K/mcL (1.6-8.9); Nucleated Red Blood Cells 0.3 /100 WBC (0); Red Blood Count 2.83 M/mcL (3.82-4.97); Red Cell Distribution Width 14.6 % (11.5-14.5); Segmented Neutrophils % 22.5 %; White Blood Count 10.7 K/mcL (4.3-11.1)
[2019-12-23 07:29] LABS: Platelet Count 63 K/mcL (140-400)
[2019-12-23 07:48] LABS: BUN/Creatinine Ratio 14 (6-26); Blood Urea Nitrogen 14 mg/dL (8-23); Calcium 7.6 mg/dL (8.6-10.3); Carbon Dioxide 26 mEq/L (23-29); Chloride 104 mEq/L (98-107); Glucose 133 mg/dL (70-105); Osmolality,Calculated 284 (280-300); Potassium 3.5 mEq/L (3.5-5.1); Sodium 136 mEq/L (136-145); eGFR For African Americans > 60 (> 60); eGFR For Non-African Americans 53 (> 60)
[2019-12-23 07:54] VITALS: BP 187/66
[2019-12-23] MEDS ORDERED: Cefdinir 300 MG CAPSULE PO SCH (09:00)
[2019-12-23] MEDS: Nystatin SUSP 5 ML UD.LIQ PO SCH (09:09)
[2019-12-23] MEDS: Doxycycline 100 MG CAPSULE PO SCH (09:09)
[2019-12-23] MEDS: Aspirin Enteric Coated 81 MG Tablet PO SCH (09:10)
[2019-12-23] MEDS: Lactobacillus 1 EACH CAP.SPRINK PO SCH (09:10)
[2019-12-23] MEDS: carvediloL 25 MG TABLET PO SCH (09:10)
[2019-12-23] MEDS: Artificial Tears SOLN 15 ML BOTTLE BOTH EYES SCH (09:11)
[2019-12-23 09:22] LABS: Platelet Estimate Decreased (Normal); Reactive Lymphocytes Present (Not Present)
[2019-12-23] MEDS: Insulin LISPRO 300 UNITS/3 ML VIAL SQ SCH (09:28)
[2019-12-23] MEDS: ALPRAZolam 0.5 MG TABLET PO PRN (09:33)
== END 2019-12-23 12:03 | disposition home or self-care (01) | DRG 871 ==
LOC: EMEROOARM 00:06 → 3BNU 00:06 → SUATTDRO 05:13 → 3BNU 05:53 → SUATTDRO 12:28 → ICNU 12-21 10:26 → 3ANU 12-21 14:39
PROVIDERS: ADMIT Family Medicine; ATTEND Family Medicine